=== PATIENT | female | born 1935 | race Caucasian/White ===

== ENCOUNTER 2020-12-14 12:28 | Observation (INO) | payer MEDICARE, OTHER ==
[~2020-12-14] VITALS: Ht 157.5 cm; Wt 62.6 kg
[~2020-12-14 12:28] MED LIST: CALCIUM + D 601 EAC1 PO; Z.0.SIMVASTATIN40 MG PO
[2020-12-14] MEDS ORDERED: KETOROLAC TROMETHAMINE 30 MG/ML VIAL IV PRN (13:45)
[2020-12-14] MEDS ORDERED: SODIUM CHLORIDE 0.9% 1000ML 1,000 ML IV SCH (14:15)
[2020-12-14] MEDS ORDERED: KETOROLAC TROMETHAMINE 30 MG/ML VIAL ONE (14:39)
[2020-12-14] MEDS ORDERED: SODIUM CHLORIDE 0.9% 1000ML 1,000 ML ONE (14:39)
[2020-12-14] MEDS ORDERED: IOPAMIDOL 370 MG/ML 200 ML INFUS..BTL INJ ONE (16:21)
[2020-12-14] MEDS ORDERED: SODIUM CHLORIDE 0.9% 50ML 50 ML ONE (16:21)
[2020-12-14] MEDS ORDERED: MORPHINE SULFATE INJ 4 MG/ML INJ 1ML IV PRN (17:15)
[2020-12-14] MEDS ORDERED: ASPIRIN 81 MG CHEW TAB PO ONE (17:15)
[2020-12-14] MEDS ORDERED: ONDANSETRON HCL INJ 2MG/ML 2ML 2 MG/ML VIAL IV PRN (17:15)
[2020-12-14] MEDS: FAMOTIDINE 20 MG TAB PO SCH (17:32)
[2020-12-14 20:30] VITALS: BP 143/66
[2020-12-14 21:24] VITALS: BP 143/66
[2020-12-14] MEDS ORDERED: CARVEDILOL3.125 MG PO (21:27)
[2020-12-14] MEDS ORDERED: REPAGLINIDE0.5 MG PO (21:27)
[2020-12-14] MEDS ORDERED: OMEPRAZOLE40 MG PO (21:27)
[2020-12-14] MEDS ORDERED: CRANBERRY300 MG PO (21:27)
[2020-12-14] MEDS: INSULIN LISPRO 100 UNIT/1 ML 3ML VIAL SQ SCH (23:30)
[2020-12-14] MEDS ORDERED: ACETAMINOPHEN 325 MG TAB PO PRN (23:30)
[2020-12-14] MEDS ORDERED: DEXTROSE 50% SYRINGE 50 ML IV PRN (23:30)
[2020-12-15] VITALS (8 sets, daily range): BP systolic 121–142; BP diastolic 61–68
[2020-12-15 01:30] LABS: CREATINE KINASE MB 1.8 ng/mL (0-5.0)
[2020-12-15] MEDS: FAMOTIDINE 20 MG TAB PO SCH ×2 (05:31→17:15)
[2020-12-15] MEDS ORDERED: REPAGLINIDE 0.5 MG TAB PO SCH (07:30)
[2020-12-15] MEDS: INSULIN LISPRO 100 UNIT/1 ML 3ML VIAL SQ SCH ×4 (07:30→20:03)
[2020-12-15] MEDS: ASPIRIN 81 MG CHEW TAB PO SCH (07:45)
[2020-12-15] MEDS: CELECOXIB 100 MG CAP PO SCH ×2 (07:45→17:27)
[2020-12-15] MEDS: PANTOPRAZOLE SOD 40 MG TABEC PO SCH (07:45)
[2020-12-15] MEDS: CARVEDILOL 3.125 MG TAB PO SCH ×2 (07:46→17:27)
[2020-12-15 08:27] LABS: BASOPHILS # (AUTO) 0.1 (0.0-0.1); EOSINOPHILS # (AUTO) 0.1 (0.0-0.4); EOSINOPHILS % 1.9 % (0.0-6.0); HEMATOCRIT 44.4 % (34.2-44.1); HEMOGLOBIN 13.8 g/dL (12.0-16.0); LYMPHOCYTES # (AUTO) 2.4 (1.0-3.2); LYMPHOCYTES % 32.4 % (18.0-39.1); MEAN CORPUSCULAR HEMOGLOBIN 29.3 pg (28-32); MEAN CORPUSCULAR HGB CONC 31.1 g/dL (31-35); MEAN CORPUSCULAR VOLUME 94.3 fL (81-99); MONOCYTES # (AUTO) 0.9 (0.2-0.8); MONOCYTES % 12.5 % (4.4-11.3); NEUTROPHILS # (AUTO) 3.8 (2.1-6.9); NEUTROPHILS % 51.9 % (38.7-80.0); PLATELET COUNT 201 x10e3/uL (140-360); RED BLOOD COUNT 4.71 x10e6/uL (3.6-5.1); RED CELL DISTRIBUTION WIDTH 13.8 % (11.7-14.4)
[2020-12-15] MEDS ORDERED: SIMVASTATIN 40 MG TAB PO SCH ×2 (09:00→21:00)
[2020-12-15] MEDS ORDERED: OYST-CAL-D 500MG TABLET PO SCH (09:00)
[2020-12-15 09:03] LABS: ANION GAP 15.6 mmol/L (8-16); CALCIUM 9.3 mg/dL (8.4-10.2); CREATININE, SERUM 0.7 mg/dL (0.57-1.11); POTASSIUM 3.6 mmol/L (3.5-5.1)
[2020-12-15 10:05] LABS: CREATINE KINASE MB 1.3 ng/mL (0-5.0)
[2020-12-15 10:12] LABS: CHOL/HDL RATIO 2.7 (3.0-3.6)
[2020-12-15 10:26] LABS: MAGNESIUM 1.8 MG/DL (1.3-2.1); PHOSPHORUS 3.6 MG/DL (2.3-4.7)
[2020-12-15 10:46] LABS: THYROID STIMULATING HORMONE 1.103 uIU/mL (0.350-4.940)
[2020-12-15] MEDS ORDERED: ONDANSETRON HCL 4 MG ORAL DISINTEGRATING TAB PO PRN (11:30)
[2020-12-15] MEDS ORDERED: MORPHINE SULFATE INJ 2 MG/ML SYR IV PRN (13:30)
[2020-12-15 16:06] LABS: CREATINE KINASE MB 1.7 ng/mL (0-5.0)
[2020-12-15] MEDS: REPAGLINIDE 1 MG TAB PO SCH (16:30)
[2020-12-15] MEDS: OYST-CAL-D 500MG TABLET PO SCH (17:26)
[2020-12-16 00:21] VITALS: BP 111/58
[2020-12-16 04:00] VITALS: BP 124/58
[2020-12-16] MEDS: FAMOTIDINE 20 MG TAB PO SCH (05:35)
[2020-12-16 07:24] VITALS: BP 153/68
[2020-12-16] MEDS: INSULIN LISPRO 100 UNIT/1 ML 3ML VIAL SQ SCH (07:25)
[2020-12-16 08:03] VITALS: BP 153/68
[2020-12-16] MEDS: REPAGLINIDE 1 MG TAB PO SCH (08:15)
[2020-12-16] MEDS: PANTOPRAZOLE SOD 40 MG TABEC PO SCH (08:15)
[2020-12-16] MEDS: CELECOXIB 100 MG CAP PO SCH (08:15)
[2020-12-16] MEDS: ASPIRIN 81 MG CHEW TAB PO SCH (08:15)
[2020-12-16] MEDS: CARVEDILOL 3.125 MG TAB PO SCH (08:16)
[2020-12-16] MEDS: OYST-CAL-D 500MG TABLET PO SCH (08:16)
[2020-12-16] MEDS ORDERED: LOSARTAN POTASSIUM 100 MG TAB PO ONE (09:00)
[2020-12-16] MEDS ORDERED: CELEBREX100 MG PO (09:15)
[2020-12-16] MEDS ORDERED: LOSARTAN POTAS100 MG PO (09:15)
== END 2020-12-16 09:40 | disposition home or self-care (01) ==
LOC: FSED 12:46 → ERHOLD 17:09 → MED/SURG 20:57
PROVIDERS: ADMIT Internal Medicine; ATTEND Internal Medicine
DX: R07.81 Pleurodynia (principal); E11.9 Type 2 diabetes mellitus without complications; I10 Essential (primary) hypertension; E78.5 Hyperlipidemia, unspecified; Z85.3 Personal history of malignant neoplasm of breast; Z90.49 Acquired absence of other specified parts of digestive tract; Z88.5 Allergy status to narcotic agent; Z88.0 Allergy status to penicillin; R06.00 Dyspnea, unspecified; K44.9 Diaphragmatic hernia without obstruction or gangrene; Z20.822 Contact with and (suspected) exposure to COVID-19
CPT/HCPCS: 36415 ×2; 71260; 80048; 80061; 82550; 82553; 82607; 82948 ×3; 83735; 84100; 84443; 84484; 85025; 93005; 93306; 93970; 99284; G0378 ×3; J1885; J7030; Q9967; S0164 ×2; U0002

== ENCOUNTER 2022-03-01 13:18 | Emergency (ER) | payer MEDICARE ==
[~2022-03-01] VITALS: Ht 154.9 cm; Wt 61.5 kg
[~2022-03-01 13:18] MED LIST changes: +CARVEDILOL3.125 MG PO; +CELEBREX100 MG PO; +CRANBERRY300 MG PO; +LOSARTAN POTAS100 MG PO; +OMEPRAZOLE40 MG PO; +REPAGLINIDE0.5 MG PO
[2022-03-01] MEDS ORDERED: NEURONTIN100 MG PO (14:08)
[2022-03-01] MEDS ORDERED: FAMOTIDINE20 MG PO (14:08)
[2022-03-01] MEDS ORDERED: VITAMIN B-121000 MC1 PO (14:08)
[2022-03-01] MEDS ORDERED: JANUVIA100 MG PO (14:08)
[2022-03-01] MEDS ORDERED: COLESTIPOL HCL1 GM PO (14:08)
[2022-03-01] MEDS ORDERED: ZINC50 M3 (14:08)
[2022-03-01] MEDS ORDERED: COREG6.25 MG PO (14:08)
[2022-03-01] MEDS ORDERED: PARLODEL2.5 MG (14:08)
[2022-03-01] MEDS ORDERED: VITAMIN D3125 MCG (14:08)
[2022-03-01] MEDS ORDERED: ONDANSETRON HCL INJ 2MG/ML 2ML 2 MG/ML VIAL IV STA (14:12)
[2022-03-01] MEDS ORDERED: SODIUM CHLORIDE 0.9% 1000ML 1,000 ML IV SCH (14:15)
[2022-03-01] MEDS ORDERED: SODIUM CHLORIDE 0.9% 1000ML 1,000 ML ONE (14:26)
[2022-03-01] MEDS ORDERED: ONDANSETRON HCL INJ 2MG/ML 2ML 2 MG/ML VIAL ONE (14:26)
[2022-03-01] MEDS ORDERED: CEFTRIAXONE 1 GM VIAL ONE (14:27)
[2022-03-01] MEDS ORDERED: FAMOTIDINE 20 MG/2 ML VIAL IV STA (14:29)
[2022-03-01] MEDS ORDERED: MAGNESIUM/ALUMINUM/SIMETHICONE 30 ML UDC PO ONE (14:30)
[2022-03-01] MEDS ORDERED: CEFUROXIME500 MG PO (15:43)
[2022-03-01] MEDS ORDERED: FAMOTIDINE40 MG PO (15:45)
[2022-03-01] MEDS ORDERED: ONDANSETRON ODT4 MG PO (15:47)
[2022-03-01] MEDS ORDERED: ALBUTEROL2.5 MG/3 M INH (15:47)
== END 2022-03-01 16:02 | disposition home or self-care (01) ==
LOC: FSED 13:42
DX: R05.9 Cough, unspecified (principal); J06.9 Acute upper respiratory infection, unspecified; J98.01 Acute bronchospasm; I10 Essential (primary) hypertension; E11.40 Type 2 diabetes mellitus with diabetic neuropathy, unspecified; K21.9 Gastro-esophageal reflux disease without esophagitis; Z20.822 Contact with and (suspected) exposure to COVID-19; Z85.3 Personal history of malignant neoplasm of breast
CPT/HCPCS: 71046; 80053; 81003; 82553; 84484; 85025; 87086; 87186; 87400; 93005; 96374; 96375; 99284; J0696; J2405; J7030; U0002

== ENCOUNTER → 2023-10-31 | Outpatient (REF) | payer MEDICARE ==
[~2023-10-31] MED LIST changes: +ALBUTEROL2.5 MG/3 M INH; +CALCIUM ACETAT667 MG PO; +CEFUROXIME500 MG PO; +COLESTIPOL HCL1 GM PO; +COREG6.25 MG PO; +FAMOTIDINE20 MG PO; +FAMOTIDINE40 MG PO; +HYDROCODON-ACE1 EA12 PO; +JANUVIA100 MG PO; +NEURONTIN100 MG PO; +ONDANSETRON ODT4 MG PO; +PARLODEL2.5 MG; +PREDNISONE20 MG PO; +VITAMIN B-121000 MC1 PO; +VITAMIN D3125 MCG; +ZINC50 M3
== END ==
LOC: RAD 12:04
PROVIDERS: ATTEND Neurological Surgery
DX: M50.20 Other cervical disc displacement, unspecified cervical region (principal); M43.22 Fusion of spine, cervical region
CPT/HCPCS: 72050

== ENCOUNTER 2023-11-01 12:27 | Emergency (ER) | payer MEDICARE ==
[~2023-11-01] VITALS: Ht 152.4 cm; Wt 59.9 kg
[2023-11-01 12:29] VITALS: TEMP 98.3
[2023-11-01] MEDS ORDERED: IOPAMIDOL 370 MG/ML 100 ML INFUS..BTL INJ ONE (13:09)
[2023-11-01] MEDS ORDERED: SODIUM CHLORIDE 0.9% 100 ML ONE (13:09)
[2023-11-01 15:14] VITALS: PULSE 80; RESP 18
[2023-11-01 17:00] VITALS: BP 142/69; PULSE 75; RESP 16; TEMP 97.5; O2SAT 98
== END 2023-11-01 17:00 | disposition short-term general hospital (02) ==
LOC: FSED 12:38
DX: R47.81 Slurred speech (principal); I63.9 Cerebral infarction, unspecified; E11.65 Type 2 diabetes mellitus with hyperglycemia; I10 Essential (primary) hypertension; K21.9 Gastro-esophageal reflux disease without esophagitis; Z85.3 Personal history of malignant neoplasm of breast
CPT/HCPCS: 36415; 70496; 70498; 80053; 81003; 82948; 84484; 85025; 93005; 99284; J7050; Q9967

== ENCOUNTER → 2024-05-21 | Outpatient (REF) | payer MEDICARE | LOC: RAD 14:06 | PROVIDERS: ATTEND Neurological Surgery | DX: M50.20 Other cervical disc displacement, unspecified cervical region (principal); M43.22 Fusion of spine, cervical region | CPT/HCPCS: 72050 ==